=== PATIENT | male | born 1995 | race African-American/Black ===

== ENCOUNTER 2018-04-17 14:33 | Inpatient (IN) ==
[2018-04-17 16:34] LABS: Basophils % 0.4 % (0.0-0.8); Eosinophils # 0.2 10*3/uL (0.0-0.87); Hematocrit 40.9 VOL% (42.0-52.0); Hemoglobin 13.6 GM/DL (14.0-18.0); Immature Granulocytes % 0.3 %; Immature Granulocytes Absolute 0.03 #; Lymphocytes # 2.8 10*3/uL (1.4-4.0); Lymphocytes % 27.8 % (21.2-54.2); Mean Corpuscular HGB Conc 33.3 GM/DL (32-36); Mean Corpuscular Hemoglobin 30 PG (27-34); Mean Corpuscular Volume 91.3 FL (87-102); Monocytes # 1.1 10*3/uL (0.11-0.8); Monocytes % 10.8 % (1.7-12.7); Neutrophils # 5.8 10*3/uL (1.4-7.4); Neutrophils % 58.7 % (38.7-73.9); Platelet Count 162 T/CUMM (130-400); Red Blood Count 4.48 MC/CUMM (3.8-5.5); Red Cell Distribution Width 13.6 % (9.3-17.3); White Blood Count 9.9 T/CUMM (4-12)
[2018-04-17 17:09] LABS: Bilirubin,Total 0.6 MG/DL (0.2-1.0); Calcium 9.5 MG/DL (8.5-10.1); Osmolality,Calculated 278.3 MOS/KG (273-304); Potassium 3.9 MMOL/L (3.5-5.1); Total Protein 8.4 G/DL (6.4-8.3)
[2018-04-18] MEDS ORDERED: ONDANSETRON 4 MG/2 ML VIAL IV PRN (13:26)
[2018-04-18] MEDS: DEXTROSE 5% NACL 0.45% 1,000 ML IV SCH ×2 (15:40→23:55)
[2018-04-19] MEDS ORDERED: LIDOCAINE 2% 5 ML VIAL ONE (09:00)
[2018-04-19] MEDS ORDERED: PROPOFOL 200 MG/20 ML VIAL IV ONE (09:00)
[2018-04-19] MEDS: PANTOPRAZOLE 40 MG VIAL IV SCH ×2 (09:37→20:52)
[2018-04-19] MEDS: DEXTROSE 5% NACL 0.45% 1,000 ML IV SCH ×2 (09:38→18:09)
[2018-04-19 09:41] LABS: Basophils % 0.5 % (0.0-0.8); Eosinophils # 0.3 10*3/uL (0.0-0.87); Eosinophils % 3.6 % (0.00-10.9); Hematocrit 39.9 VOL% (42.0-52.0); Immature Granulocytes % 0.2 %; Immature Granulocytes Absolute 0.02 #; Lymphocytes # 2.1 10*3/uL (1.4-4.0); Lymphocytes % 25.3 % (21.2-54.2); Mean Corpuscular HGB Conc 32.6 GM/DL (32-36); Mean Corpuscular Hemoglobin 30 PG (27-34); Mean Corpuscular Volume 91.5 FL (87-102); Mean Platelet Volume 11.8 FL (9.6-12.0); Monocytes # 1.2 10*3/uL (0.11-0.8); Monocytes % 14.7 % (1.7-12.7); Neutrophils # 4.6 10*3/uL (1.4-7.4); Neutrophils % 55.7 % (38.7-73.9); Platelet Count 148 T/CUMM (130-400); Red Blood Count 4.36 MC/CUMM (3.8-5.5); Red Cell Distribution Width 13.2 % (9.3-17.3); White Blood Count 8.3 T/CUMM (4-12)
[2018-04-20 05:24] LABS: Basophils % 0.6 % (0.0-0.8); Eosinophils # 0.3 10*3/uL (0.0-0.87); Eosinophils % 4.1 % (0.00-10.9); Hematocrit 38.4 VOL% (42.0-52.0); Hemoglobin 12.6 GM/DL (14.0-18.0); Immature Granulocytes % 0.1 %; Immature Granulocytes Absolute 0.01 #; Lymphocytes # 2.8 10*3/uL (1.4-4.0); Lymphocytes % 38.7 % (21.2-54.2); Mean Corpuscular HGB Conc 32.8 GM/DL (32-36); Mean Corpuscular Hemoglobin 30 PG (27-34); Mean Platelet Volume 12.6 FL (9.6-12.0); Monocytes % 13.7 % (1.7-12.7); Neutrophils % 42.8 % (38.7-73.9); Platelet Count 144 T/CUMM (130-400); Red Blood Count 4.22 MC/CUMM (3.8-5.5); Red Cell Distribution Width 13.3 % (9.3-17.3); White Blood Count 7.1 T/CUMM (4-12)
[2018-04-20 05:40] LABS: Potassium 3.5 MMOL/L (3.5-5.1)
[2018-04-20] MEDS: PANTOPRAZOLE 40 MG VIAL IV SCH ×2 (10:11→20:20)
[2018-04-20] MEDS: DEXTROSE 5% NACL 0.45% 1,000 ML IV SCH ×2 (18:51→20:21)
[2018-04-21] MEDS: DEXTROSE 5% NACL 0.45% 1,000 ML IV SCH (04:32)
[2018-04-21] MEDS: PANTOPRAZOLE 40 MG VIAL IV SCH (09:32)
[2018-04-21 16:33] VITALS: BP 131/83
== END 2018-04-21 21:15 | disposition home or self-care (01) | DRG 392 ==
LOC: N.ED 14:33 → N.EDINP 14:33 → N.4E 21:05
PROVIDERS: ADMIT Internal Medicine; ATTEND Internal Medicine